=== PATIENT | male | born 1945 | race Caucasian/White ===

== ENCOUNTER 2018-02-07 16:43 | Emergency (ER) | payer MEDICARE, OTHER ==
[~2018-02-07] VITALS: Ht 175.3 cm; Wt 102.7 kg
[~2018-02-07 16:43] MED LIST: AMBIEN10 MG PO; BAYER CHEWABLE81 MG PO; NEXIUM40 MG PO; PLAVIX75 MG PO; TOPROL XL25 MG PO
[2018-02-07 16:48] VITALS: Ht 175.3 cm; Wt 102.7 kg
[2018-02-07] MEDS ORDERED: OMNICEF300 MG PO (16:50)
[2018-02-07] MEDS ORDERED: MEDROL DOSE PACK4 MG (16:51)
[2018-02-07] MEDS ORDERED: ZITHROMAX250 MG (16:51)
[2018-02-07 17:08] LABS: BASOPHILS 0.2 % (0-2); EOSINOPHILS 0.4 % (0-7); HEMATOCRIT 42.8 % (42.0-54.0); HEMOGLOBIN 14.2 g/dL (13.5-17.5); IMMATURE GRANULOCYTES 0.3 % (0-5); MCH 30.2 pg (26.0-34.0); MCHC 33.2 g/dL (31.0-37.0); MCV 91.1 fL (80.0-100.0); MONOCYTES 6.6 % (2-11); NEUTROPHILS 73.5 % (40-80); PLATELET COUNT 205 10x3/uL (130-400); RDW 13.3 % (11.5-14.5); WBC 13.1 10x3/uL (4.8-10.8)
[2018-02-07 17:23] LABS: INR 1.06 (0.85-1.17); PROTIME 13.4 SECONDS (11.6-15.0)
[2018-02-07 17:25] LABS: D-DIMER-QUANTITATIVE 0.32 ug/mLFEU (0.20-0.54)
[2018-02-07 17:33] LABS: ALKALINE PHOSPHATASE 65 U/L (46-116); ALT (SGPT) 27 U/L (10-68); CALC OSMOLALITY 282 mosm/kg (275-300); CALCIUM 9.1 mg/dL (8.5-10.1); CARBON DIOXIDE 31.6 mmol/L (21.0-32.0); CHLORIDE - SERUM 104 mmol/L (98-107); CREATININE - SERUM 0.9 mg/dL (0.6-1.3); GLUCOSE 128 mg/dL (74-106); POTASSIUM - SERUM 3.8 mmol/L (3.5-5.1); PROTEIN - SERUM 7.3 g/dL (6.4-8.2); SODIUM 140 mmol/L (136-145); UREA NITROGEN 18 mg/dL (7-18); eGFR NON AFRICAN AMERICAN 88 mL/min (90-120)
[2018-02-07 17:44] LABS: CKMB 0.9 U/L (0.0-3.6); CREATINE KINASE 56 UL (21-232); PRO BNP 268 pg/mL (0-125)
[2018-02-07 17:48] LABS: TROPONIN-I < 0.017 ng/mL (0.000-0.060)
[2018-02-07 21:40] VITALS: BP 132/89
== END 2018-02-07 21:40 | disposition home or self-care (01) ==
LOC: D.ER 16:43
PROVIDERS: Family Medicine
DX: J20.9 Acute bronchitis, unspecified (principal); K21.9 Gastro-esophageal reflux disease without esophagitis; J02.9 Acute pharyngitis, unspecified